=== PATIENT | male | born 1945 | race Caucasian/White ===

== ENCOUNTER 2025-06-29 12:55 | Emergency (ER) | payer MEDICARE, OTHER ==
[2025-06-29 15:10] LABS: BASOPHILS ABSOLUTE AUTO 0.06 K/uL (0.00-0.10); BASOPHILS PERCENT AUTO 0.6 % (0.1-1.3); EOSINOPHILS ABSOLUTE AUTO 0.04 K/uL (0.00-0.40); EOSINOPHILS PERCENT AUTO 0.4 % (0.0-5.4); IMMATURE GRAN PERCENT AUTO 0.1 % (0.0-0.7); LYMPHOCYTES ABSOLUTE AUTO 1.81 K/uL (0.8-3.3); LYMPHOCYTES PERCENT AUTO 18.7 % (11.4-47.7); MONOCYTES ABSOLUTE AUTO 1.40 K/uL (0.20-0.90); MONOCYTES PERCENT AUTO 14.4 % (3.3-12.6); NEUTROPHILS ABSOLUTE AUTO 6.37 K/uL (1.0-7.6); NEUTROPHILS PERCENT AUTO 65.8 % (40.0-78.1); PLATELET COUNT,PLT 160 K/uL (130-375); RED BLOOD CELL COUNT 4.54 M/uL (4.14-5.76); WHITE BLOOD CELL COUNT,WBC 9.7 K/uL (3.2-11.0)
[2025-06-29 15:11] LABS: BASE EXCESS VENOUS 2.0 mm/L; BICARBONATE,VENOUS 26.6 mmol/L; O2 SATURATION VENOUS 32.2; OXYHEMOGLOBIN 31.4 %; PCO2 VENOUS 43.7 mm/Hg; PH,VENOUS 7.402 (7.350-7.450); TOTAL HEMOGLOBIN 14.7 g/dL (13.5-18.0)
[2025-06-29 15:13] LABS: IMMATURE GRAN ABSOLUTE AUTO 0.01 K/uL (0.00-0.23); PO2 VENOUS 23.9 mm/Hg
[2025-06-29 15:29] LABS: INR 1.3
[2025-06-29 15:41] LABS: A/G RATIO 1.1 (1.2-2.2); ALANINE AMINOTRANSFERASE,ALT 32 U/L (12-78); ASPARTATE AMNIOTRANSFERASE,AST 69 U/L (15-37); BILIRUBIN TOTAL 1.3 mg/dL (0.2-1.0); BLOOD UREA NITROGEN,BUN 26 mg/dL (7-18); CARBON DIOXIDE,CO2 29 mmol/L (21-32); CHLORIDE,CL 101 mmol/L (100-108); CREATININE 1.7 mg/dL (0.8-1.3); ESTIMATED GFR 41 mL/min (>60); GLUCOSE RANDOM 110 mg/dL (74-106); POTASSIUM,K 3.9 mmol/L (3.6-5.2); PRO B-TYPE NATRIUR PEPT,BNPPRO 13886 pg/mL (5-450); PROTEIN TOTAL,TP 6.8 g/dL (6.4-8.2); SODIUM,NA 139 mmol/L (140-148)
[2025-06-29 15:42] LABS: TROPONIN I HIGH SENSITIVITY 9658.1 pg/mL (<=60.3)
[2025-06-29 16:01] LABS: APPEARANCE,URINE CLEAR (CLEAR); GLUCOSE,URINE 500 mg/dL (NEGATIVE); OCCULT BLOOD,URINE NEGATIVE (NEGATIVE)
[2025-06-29 16:20] LABS: SQUAMOUS EPITHELIAL CELLS,UR RARE /HPF; UROTHELIAL CELLS,URINE NOT SEEN /HPF
[2025-06-29] MEDS: Furosemide 40 MG/4 ML VIAL IVPUSH ONE (16:23)
== END 2025-06-29 19:35 ==
LOC: JP.ED 12:55
DX: I21.4 Non-ST elevation (NSTEMI) myocardial infarction (principal); I50.9 Heart failure, unspecified; E11.9 Type 2 diabetes mellitus without complications; Z86.73 Personal history of transient ischemic attack (TIA), and cerebral infarction without residual deficits; Z95.1 Presence of aortocoronary bypass graft; Z79.82 Long term (current) use of aspirin; Z79.899 Other long term (current) drug therapy
CPT/HCPCS: 36415; 71045; 80053; 80307; 81001; 82803; 83605; 83735; 83880; 84484; 85025; 85379; 85610; 85730; 86140; 87426; 93005; 93010; 96365; 96366; 96375; 99285; A9270; J1644; J1938; J7030